=== PATIENT | male | born 1985 | race Caucasian/White ===

== ENCOUNTER 2019-09-29 05:38 | Emergency (ER) | payer MEDICAID ==
[~2019-09-29] VITALS: Ht 175.3 cm; Wt 70.3 kg
[2019-09-29 05:38] VITALS: BP 116/85
--- NOTE | 2019-09-29 06:14 | NUR ---
at the bed side
--- NOTE | 2019-09-29 06:27 | NUR ---
Patient discharged to home in stable condition. Written and verbal after care instructions given. Patient verbalizes understanding of instruction.PT ambulatory with a steady gait
== END 2019-09-29 06:28 | disposition home or self-care (01) ==
LOC: ER 05:38
DX: R51 Headache (principal); Z88.1 Allergy status to other antibiotic agents